=== PATIENT | male | born 1985 | race Caucasian/White ===

== ENCOUNTER → 2018-04-24 | Outpatient (CLI) | payer OTHER ==
[~2018-04-24] MED LIST: CONRAY-43 43% 50ML VIAL (Q9960) As Ordered ONE; PROHANCE 279.3MG/ML 5ML VIAL (A9576) As Ordered ONE
--- NOTE | 2018-04-24 11:39 | REP ---
Injection procedure for MR arthrography right hip: History: Right hip pain. Question labral tear. Procedure: The patient was interviewed and informed consent was obtained. The patient was placed supine on the fluoroscopic table and right groin was exposed anteriorly. The skin was marked at the site of the right groin pulse. Patient safety time-out was articulated and agreed upon. Following this, the right groin was prepped and draped in the usual fashion. 2 ml of 1% lidocaine were utilized for local anesthetic. A 22 gauge 3-1/2-inch needle was advanced into the right hip articulation without technical difficulty using fluoroscopic guidance. Intra-articular needle position was confirmed by the injection of 1/2 ml of Conray 43. This is followed by the injection of 10 ml of a 20 ml sterile saline solution mixed with 0.15 ml of gadolinium. The patient tolerated the procedure well. Impression: Injection procedure for MR arthrography right hip. Fluoroscopy time is 0.2 minutes. Electronically Signed by Khoi Pace MD 04/24/2018 01:26 P
--- NOTE | 2018-04-24 17:35 | REP ---
MR arthrogram right hip: History: Right hip pain . Comparison studies: No comparison study. Technique: Precontrast imaging includes coronal T1 and T2-weighted scans of both hips. Postcontrast small field of view high resolution axial, coronal and sagittal images are acquired in T1 and T2-weighted scans with fat saturation. MR arthrographic findings: Pre injection MR imaging demonstrates that the cortical and medullary bone signal intensity is normal in the proximal femurs. There is no evidence of avascular necrosis on either side. No significant hip joint effusion is seen. No periarticular bursal fluid collection or cyst is seen. No pelvic mass lesion is observed. No abdominal wall defect is seen. Ligamentum teres appear intact bilaterally. Post injection MR imaging shows good filling and enhancement. There is some injection artifact anteriorly. There is no visible labral cartilage tear. No loose body is seen. Head neck junction morphology is unremarkable. Impression: Negative MR arthrography right hip. Electronically Signed by Khoi Pace MD 04/24/2018 05:48 P
== END ==
LOC: M RADPRO 06:37
DX: M25.551 Pain in right hip (principal)
CPT/HCPCS: 27093; 73723; 77002; A9576; Q9960

== ENCOUNTER → 2020-02-08 | Outpatient (REF) | payer OTHER | LOC: M SMT 17:07 | PROVIDERS: ATTEND Urology | DX: N48.9 Disorder of penis, unspecified (principal) ==

== ENCOUNTER 2020-10-09 17:31 | Emergency (ER) | payer OTHER ==
[~2020-10-09] VITALS: Ht 175.3 cm; Wt 103.0 kg
[2020-10-09] MEDS ORDERED: SERT-141 PO (17:39)
[2020-10-09] MEDS ORDERED: AMLO1TAB24 PO (17:39)
[2020-10-09] MEDS ORDERED: ACET-683 PO (17:39)
[2020-10-09] MEDS ORDERED: DERMABOND TOPICAL SKIN ADHESIVE TOP ONE (20:10)
[2020-10-09] MEDS ORDERED: LIDOCAINE 1% MDV 20ML VIAL SC ONE (20:10)
--- NOTE | 2020-10-09 21:20 | REPVR ---
PROCEDURE INFORMATION: Exam: XR Left Finger(s) Exam date and time: 10/09/2020 8:23 PM Age: 34 years old Clinical indication: Pain; Finger(s); Left; Additional info: Trauma with power tool TECHNIQUE: Imaging protocol: XR Left fingers. Views: Minimum 2 views. COMPARISON: No relevant prior studies available. FINDINGS: Bones/joints: No fractures of the thumb. Soft tissues: Radiopaque curvilinear foreign body deep to the skin at the base of the index finger. IMPRESSION: 1. Minimal curvilinear foreign body deep to the skin near the base of the index finger at the level of the distal 2nd metacarpal. 2. Negative left thumb. No fracture. Electronically signed by: Bertrand Santo On 10/09/2020 21:19:47 PM
[2020-10-09] MEDS ORDERED: CEPH500C PO (21:36)
[2020-10-09] MEDS ORDERED: BACITRACIN OINTMENT 30GM TUBE TOP ONE (21:40)
[2020-10-09] MEDS ORDERED: CEPHALEXIN 500 MG CAP PO ONE (21:40)
[2020-10-09 21:46] VITALS: BP 145/89
--- NOTE | 2020-10-11 07:58 | ED PDOC ---
Post-Departure Follow-Up radiology report faxed to [facility] Jade Tompkins MD Oct 11, 2020 07:58
== END 2020-10-09 21:54 | disposition home or self-care (01) ==
LOC: M ED 21:06
DX: S61.112A Laceration without foreign body of left thumb with damage to nail, initial encounter (principal); W31.2XXA Contact with powered woodworking and forming machines, initial encounter; Y92.009 Unspecified place in unspecified non-institutional (private) residence as the place of occurrence of the external cause; Y93.9 Activity, unspecified; Y99.8 Other external cause status; I10 Essential (primary) hypertension

== ENCOUNTER → 2020-12-17 | Outpatient (REF) | payer OTHER ==
[~2020-12-17] MED LIST changes: +ACET-683 PO; +AMLO1TAB24 PO; +CEPH500C PO; -CONRAY-43 43% 50ML VIAL (Q9960) As Ordered ONE; -PROHANCE 279.3MG/ML 5ML VIAL (A9576) As Ordered ONE; +SERT-141 PO
== END ==
LOC: M SMT 12:50
PROVIDERS: ATTEND Urology
DX: Z30.2 Encounter for sterilization (principal)

== ENCOUNTER → 2021-01-13 | Outpatient (CLI) | payer OTHER ==
--- NOTE | 2021-01-13 15:12 | REP ---
INDICATION: TESTICULAR PAIN COMPARISON: None. TECHNIQUE: Bolden scale and color Doppler evaluation using linear and curved array transducer with color Doppler evaluation. FINDINGS: The testicles and epididymi are relatively normal in contour, size, echogenicity, vascularity and overall appearance. There is no evidence for intratesticular mass lesion, infectious/inflammatory process, or torsion. No obvious hydroceles or varicoceles are identified. Incidental small solitary calcification in the lower pole of the left testicle is identified along with 2 mm left epididymal head cyst. Right testicle measures 4.0 x 1.8 x 2.8 cm. Left testicle measures 3.9 x 2.1 x 2.6 cm. IMPRESSION: Essentially normal scrotal ultrasound. <Electronically signed by Evelio Monteiro > 01/13/21 [id number]
== END ==
LOC: M RAD 14:12
PROVIDERS: ATTEND Urology
DX: N50.819 Testicular pain, unspecified (principal)

== ENCOUNTER → 2021-06-26 | Outpatient (REF) | payer OTHER ==
[2021-06-26 13:19] LABS: SEMEN APPEARANCE OPAQUE (OPAQUE); SEMEN VISCOSITY LIQUID (LIQUID); SEMEN VOLUME 2.2 ml (2.0-5.0); WBC CONCENTRATION <=1 M/ml (<=1 M/ml)
== END ==
LOC: M SMT 12:45
PROVIDERS: ATTEND Urology
DX: Z30.2 Encounter for sterilization (principal)